=== PATIENT | female | born 2000 | race Caucasian/White ===

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

== ENCOUNTER 2019-05-15 18:42 | Emergency (ER) | payer MEDICAID, OTHER ==
[~2019-05-15] VITALS: Ht 165.1 cm; Wt 45.0 kg
[~2019-05-15 18:42] MED LIST: ACET500C5 PO; FER325 PO; PREN-93 PO; PREN1TAB17 PO
[2019-05-15 19:08] VITALS: BP 120/74; PULSE 83; RESP 18; Ht 165.1 cm; Wt 45.0 kg
--- NOTE | 2019-05-15 23:13 | ERD ---
ER Documentation Chief Complaint Chief Complaint states hit left side of head on a cabinet 5 days ago, no ko. c/o headache HPI This is a 18-year-old female presents to the ED complaining of sharp left-sided headache x5 days. Patient states she had the left side of her head against a metal cabinet when standing up. There is no LOC, no amnesia, no disorientation. Patient states she had some initial lightheadedness and has since been having some intermittent left-sided head pains. She denies any nausea or vomiting. She does report some light sensitivity and some agitation. Denies any focal weakness. Denies any neck stiffness. Denies change in vision. Has been taking [id number] Tylenol with temporary relief of her symptoms. She is otherwise healthy on no blood thinning medications. ROS All systems reviewed and are negative except as per history of present illness. Medications Home Meds Active Scripts Acetaminophen* (Tylophen*) 500 Mg Capsule, 1 CAP PO Q6H PRN for PAIN AND OR ELEVATED TEMP, #30 CAP Prov:XAVIER BEAUCHAMP PA-C 05/15/19 Reported Medications Vit No.124/Iron/FA ( Vitamin Tablet) 1 Each Tablet, 1 EACH PO, TAB 12/11/17 Ferrous Sulfate* (Ferrous Sulfate*) 325 Mg Tabec, 325 MG PO TID, TAB 10/24/17 Vit-Iron Fumarate-FA ( Tablet) 1 Each Tablet, 1 TAB PO DAILY, TAB 10/24/17 Allergies Allergies: Coded Allergies: shellfish derived (Verified Allergy, Unknown, 12/12/17) PMhx/Soc Medical and Surgical Hx: pt denies Medical Hx, pt denies Surgical Hx Smoking Status: Never smoker FmHx Family History: No diabetes Physical Exam Vitals Vital Signs Date Temp Pulse Resp B/P (MAP) Pulse Ox O2 O2 Flow FiO2 Time Delivery Rate 05/15/19 99.3 83 18 120/74 99 19:08 (89) Physical Exam Const: No acute distress Head: Atraumatic Eyes: Normal Conjunctiva ENT: Normal External Ears, Nose and Mouth. Neck: Full range of motion. No meningismus. Skin: No petechiae or rashes Ext: No cyanosis, or edema Neuro: M/S: Alert and oriented Face: EOMI, face and pharynx with normal sensation and function Motor: Normal strength throughout Sensation: Normal sensation throughout Speech: Normal Cerebel: Normal coordination Normal gait Normal finger to nose DTR: 2+ and symmetric upper/lower extremities Psych: Normal Mood and Affect Procedures/MDM MEDICAL DECISION MAKIN-year-old female presents with a closed head injury after hitting her head against a metal cabinet. She is neurologically intact on my physical exam, she is cleared by [place] CT head criteria. Patient does not need CT head imaging at this time. Patient likely suffered a minor concussion. She is otherwise neurovascular intact without any focal neurological deficits. She is stable for discharge home and outpatient follow-up. Strict return precautions were discussed. PRESCRIPTIONS: Ibuprofen SPECIALIST FOLLOW UP RECOMMENDED: None Patient has been advised to follow up with primary care in 1-2 days. Departure Diagnosis: Primary Impression: Closed head injury Encounter type: initial encounter Qualified Codes: S09.90XA - Unspecified injury of head, initial encounter Condition: Stable Patient Instructions: Concussion in adults Referrals: [facility] YOU HAVE RECEIVED A MEDICAL SCREENING EXAM AND THE RESULTS INDICATE THAT YOU DO NOT HAVE A CONDITION THAT REQUIRES URGENT TREATMENT IN THE EMERGENCY DEPARTMENT. FURTHER EVALUATION AND TREATMENT OF YOUR CONDITION CAN WAIT UNTIL YOU ARE SEEN IN YOUR DOCTORS OFFICE WITHIN THE NEXT 1-2 DAYS. IT IS YOUR RESPONSIBILITY TO MAKE AN APPOINTMENT FOR FOLOW-UP CARE. IF YOU HAVE A PRIMARY DOCTOR --you should call your primary doctor and schedule an appointment IF YOU DO NOT HAVE A PRIMARY DOCTOR YOU CAN CALL OUR PHYSICIAN REFERRAL HOTLINE AT IF YOU CAN NOT AFFORD TO SEE A PHYSICIAN YOU CAN CHOSE FROM THE FOLLOWING [facility] [address] [facility] [address] [email or web address] [facility] [address] [facility] [facility] [address] [facility] [facility] [address] [facility]. [facility]. [address] Additional Instructions: Tylenol for pain. Take the next day off work. If you have worsening headaches, acting funny, intractable vomiting, return here. Otherwise take Tylenol for pain. Follow-up with your regular doctor in 1 week. XAVIER BEAUCHAMP PA-C May 15, 2019 23:09
== END 2019-05-15 19:34 | disposition home or self-care (01) ==
LOC: E/R 18:42
DX: S09.90XA Unspecified injury of head, initial encounter (principal); W22.09XA Striking against other stationary object, initial encounter; Y92.9 Unspecified place or not applicable
CPT/HCPCS: 99283